=== PATIENT | male | born 1985 | race African-American/Black ===

== ENCOUNTER 2017-05-05 21:43 | Emergency (ER) | payer OTHER, BC ==
[~2017-05-05] VITALS: Ht 182.9 cm; Wt 82.7 kg
[2017-05-05 22:13] VITALS: BP 131/60; PULSE 67; RESP 18; TEMP 98; O2SAT 98
[2017-05-06 00:35] VITALS: BP 141/74; PULSE 68; RESP 16; O2SAT 98
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
[2017-05-06] MEDS ORDERED: ROBA750T PO (02:39)
== END 2017-05-06 04:17 | disposition home or self-care (01) ==
LOC: PHEFT 21:43 → PHED 05-06 04:17
DX: S16.1XXA Strain of muscle, fascia and tendon at neck level, initial encounter (principal); V89.2XXA Person injured in unspecified motor-vehicle accident, traffic, initial encounter; G44.319 Acute post-traumatic headache, not intractable; Y92.410 Unspecified street and highway as the place of occurrence of the external cause
CPT/HCPCS: 70450; 72072; 72100; 72125; 99285